=== PATIENT | male | born 1985 | race Caucasian/White ===

== ENCOUNTER 2021-05-29 08:51 | Emergency (ER) | payer BC ==
[~2021-05-29] VITALS: Ht 182.9 cm; Wt 90.7 kg
[2021-05-29] MEDS ORDERED: SODIUM CHLORIDE 0.9% 1000ML 1,000 ML IV STA (09:14)
[2021-05-29] MEDS ORDERED: ONDANSETRON HCL INJ 2MG/ML 2ML 2 MG/ML VIAL IV ONE (09:15)
[2021-05-29] MEDS ORDERED: FAMOTIDINE 20 MG/2 ML VIAL IV ONE (09:15)
[2021-05-29] MEDS ORDERED: SODIUM CHLORIDE 0.9% 50ML 50 ML ONE (09:22)
[2021-05-29] MEDS ORDERED: IOPAMIDOL 370 MG/ML 200 ML INFUS..BTL INJ ONE (09:22)
[2021-05-29] MEDS ORDERED: SODIUM CHLORIDE 0.9% 1000ML 1,000 ML ONE (09:26)
[2021-05-29] MEDS ORDERED: ONDANSETRON HCL INJ 2MG/ML 2ML 2 MG/ML VIAL ONE (09:26)
[2021-05-29] MEDS ORDERED: ONDANSETRON HCL INJ 2MG/ML 2ML 8 MG in SODIUM CHLORIDE 0.9% 50ML 50 ML IV ONE (09:30)
== END 2021-05-29 10:28 | disposition home or self-care (01) ==
LOC: FSED 09:07
DX: R11.2 Nausea with vomiting, unspecified (principal); K52.9 Noninfective gastroenteritis and colitis, unspecified
CPT/HCPCS: 74177; 80053; 81003; 85025; 99283; J2405; J7030; Q9967